=== PATIENT | female | born 1995 | race Caucasian/White ===

== ENCOUNTER 2018-05-17 20:00 | Outpatient (CLI) | payer OTHER | END 2018-05-17 21:56 | disposition home or self-care (01) | LOC: OBS/DEL 20:00 | DX: O26.892 Other specified pregnancy related conditions, second trimester (principal); R10.2 Pelvic and perineal pain; Z34.02 Encounter for supervision of normal first pregnancy, second trimester ==

== ENCOUNTER 2018-08-02 05:34 | Inpatient (IN) | payer OTHER ==
[~2018-08-02] VITALS: Ht 162.6 cm; Wt 84.4 kg
[2018-08-02] MEDS ORDERED: PRENATAL 19 TA1 EAC1 PO (06:40)
[2018-08-04] MEDS ORDERED: DERMOPLAST PAIN78 GM TOP (15:41)
[2018-08-04] MEDS ORDERED: ANUSOL-HC30 G2 RECTAL ×2 (15:41)
== END 2018-08-04 15:44 | disposition home or self-care (01) | DRG 807 ==
LOC: LDR 05:34 → OB/GYN 05:34 → LDR 19:06 → OB/GYN 19:09
PROVIDERS: ADMIT Obstetrics & Gynecology
PROC: 10E0XZZ Delivery of Products of Conception, External Approach (ICD-10-PCS; principal; 2018-08-02)
PROC: 0KQM0ZZ Repair Perineum Muscle, Open Approach (ICD-10-PCS; 2018-08-02)
PROC: 4A1HXCZ Monitoring of Products of Conception, Cardiac Rate, External Approach (ICD-10-PCS; 2018-08-02)
PROC: 4A033R1 Measurement of Arterial Saturation, Peripheral, Percutaneous Approach (ICD-10-PCS; 2018-08-02)
DX: O70.1 Second degree perineal laceration during delivery (principal); Z37.0 Single live birth; Z3A.39 39 weeks gestation of pregnancy

== ENCOUNTER 2025-06-26 09:07 | Outpatient (CLI) | payer OTHER ==
[~2025-06-26 09:07] MED LIST: ANUSOL-HC30 G2 RECTAL; DERMOPLAST PAIN78 GM TOP; PRENATAL 19 TA1 EAC1 PO
== END 2025-06-26 09:08 | disposition home or self-care (01) ==
LOC: PRENATAL 09:07
PROVIDERS: ATTEND Obstetrics & Gynecology Maternal & Fetal Medicine
DX: O36.80X0 Pregnancy with inconclusive fetal viability, not applicable or unspecified (principal); Z36.82 Encounter for antenatal screening for nuchal translucency; Z14.8 Genetic carrier of other disease; O34.11 Maternal care for benign tumor of corpus uteri, first trimester; Z3A.12 12 weeks gestation of pregnancy